=== PATIENT | female | born 1990 | race Caucasian/White ===

== ENCOUNTER 2024-08-23 10:52 | Outpatient (AMB) | payer OTHER, SELFPAY ==
--- NOTE | 2024-08-23 10:57 | MHC.PC.OV ---
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 Health Care Consultant Required: No Accompanied by: Child Allergies No Known Allergies Allergy (Verified 08/23/24 11:09) Medication List - Last Reconciled 08/23/24 by Latanya Guerra MD cetirizine mg PO epinephrine (EpiPen 2-Margarito) 0.3 mg IM Q10M PRN Tobacco use date assessed: 08/23/24 Dental Screening Dental Screen Date: 08/23/24 Did you have a dental visit in the last 12 months?: No Did you have a dental problem in the last 6 months where you did not have access to dental care?: No Was dental information given to patient?: Patient has dentist HPI HPI Comments History of Present Illness Details The patient is a 33-year-old female presenting with knee pain and other musculoskeletal complaints. She reports bilateral knee pain described as a burning sensation, primarily occurring at the end of the day. 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 She notes that it often leads to tears and disrupts her sleep, but she rarely seeks medical attention unless experiencing severe discomfort. The pain has persisted for an unspecified duration, and currently, she reports no use of pain medications for relief. Additionally, the patient expresses concern about generalized muscular pain and occasional swelling in the shoulder, which she attributes to lifting and using a massaging device. She denies any swelling in her knee. The patient has also reported a feeling of tiredness and low energy levels, but she generally sleeps well. She experiences episodes of difficulty relaxing and restlessness, which she associates with mild anxiety. There has been no alcohol or tobacco use reported. [facility] Surgical History History of cholecystectomy History of History of carpal tunnel surgery History of appendectomy Family History Mother Diabetes Dementia Arthritis Anemia Father No problems noted. Social History Housing: House Alcohol intake: never Patient Tobacco Use Status: Never used Tobacco e-Cigarette/Vaping Use: Never Used Second Hand Smoke Exposure: No service: No Current occupational status: employed Current occupational exposures/hazards: No Cognitive needs: No Hearing needs: No Vision needs: No Questionnaire PHQ-9 Over the last 2 weeks, how often have you been bothered by any of the following problems? 1. Little interest or pleasure in doing things: not at all 2. Feeling down, depressed, or hopeless: not at all 3. Trouble falling or staying asleep, or sleeping too much: not at all 4. Feeling tired or having little energy: several days 5. Poor appetite or overeating: not at all 6. Feeling bad about yourself - or that you are a failure or have let yourself or your family down: not at all 7. Trouble concentrating on things, such as reading the newspaper or watching television: not at all 8. Moving or speaking so slowly that other people could have noticed. Or the opposite - being so fidgety or restless that you have been moving around a lot more than usual: not at all 9. Thoughts that you would be better off or of hurting yourself in some way: not at all Total score: 1 Depression Screening Interpretation: Positive Depression Screening Follow-up: Existing condition and Follow-up Visit Requested Depression Screening Done: Yes 80868 - PHQ-9 Billing: Yes Source: Developed by Drs. Mario Eugene, Enid Isabel, Evens Diaz and colleagues, with an educational anish from [employer]. Thrive Questionnaire Date Thrive assessed: 08/23/24 I am a: Patient What is your living situation today?: I have a steady place to live Within the past 12 months, did the food you bought not last and you didn't have the money to get more?: Never true Within the past 12 months, did you worry whether your food would run out before you got money to buy more?: Never true Do you have trouble paying for medicines?: No Do you have trouble getting transportation to medical appointments?: No Do you have trouble paying your heating and electricity bill?: No Do you have trouble taking care of your child, family member or friend?: No Do you have trouble with day-to-day activities such as bathing, preparing meals, shopping, managing finances, etc.?: No Are you currently unemployed and looking for a job?: No Are you interested in more education?: No Please select the resources that you would like help with: None Currently or been in a relationship where the following occur: No concerns reported THRIVE Score: 0 AUDIT C Alcohol Use Questionnaire (AUDIT-C) 1. How often do you have a drink containing alcohol?: Never Total Score: 0 Score Reviewed/Action Taken: No ANDRZEJ-7 AMB Questionnaire ANDRZEJ-7 Date ANDRZEJ - 7 assessed: 08/23/24 Feeling nervous, anxious, or on edge: 0 = Not at all Not being able to stop or control worryin = Not at all Worrying too much about different things: 0 = Not at all Trouble relaxin = Several days Being so restless that it is hard to sit still: 1 = Several days Becoming easily annoyed or irritable: 0 = Not at all Feeling afraid as if something awful might happen: 0 = Not at all Total ANDRZEJ-7 score (0-4 normal; 5-9 mild; 10-14 moderate; 15-21 severe): 2 Source: Developed by Drs. Mario Eugene, Enid Isabel, Evens Diaz and colleagues, with an educational anish from [employer]. ANDRZEJ-7 Assessment Billing ANDRZEJ-7 Assessment Tool: ANDRZEJ-7 Assessment 58150 Review of Systems Const All systems reviewed & are unremarkable except as noted in HPI and below Card Denies chest pain at rest, Denies chest pain with activity, Denies edema, Denies irregular heart rhythm, Denies claudication, Denies dyspnea, Denies dyspnea on exertion, Denies orthopnea, Denies paroxysmal nocturnal dyspnea and Denies slow heart rate Resp Denies cough, Denies dyspnea and Denies dyspnea on exertion GI Denies abdominal pain, Denies change in bowel habits, Denies excessive flatus, Denies nausea and Denies vomiting Musc Reports arthralgias Physical exam (Primary Care) Vital Signs: Last Vital Signs BP 118/70 08/23/24 11:00 BMI result Body Mass Index 41.5 BMI Assessment/Plan discussion: High BMI High, discussed plan: lifestyle, weight reduction, dietary and physical activity Tobacco/Smoking Status: Tobacco use Status Tobacco use date assessed 08/23/24 08/23/24 11:07 Patient Tobacco Use Status Never used Tobacco 08/23/24 11:07 e-Cigarette/Vaping Use Never Used 08/23/24 11:07 PHQ-9: PHQ-9 Score PHQ-9: Total score 1 08/23/24 11:00 Depression Screening Interpretation: Positive Depression Screening Follow-up: Existing condition and Follow-up Visit Requested Thrive Assessment: Date of Thrive Assessment Date Thrive assessed 08/23/24 08/23/24 11:00 Currently or been in a relationship where the following occur: No concerns reported Resp Effort & Inspection: normal respiratory effort Auscultation: clear to auscultation bilaterally Cardio Jugular venous distension: no JVD Rate: regular rate Rhythm: regular rhythm Heart sounds: S1 normal heart sound present and S2 normal heart sound present Extrem General: Yes full ROM Office Procedures Flu Questionnaire Does the patient have a severe egg allergy?: No Immunizations Fluarix Triv [id number] (PF) 45 mcg (15 mcg x 3)/0.5 mL IM syringe Performing Provider: Latanya Guerra MD Per[facility] [place] [facility] Documented (not given) by: ANG Painting on 08/23/24 11:07 Reason Not Given: Patient Refused Coding Level of Care Code New Pt Level 4 (38027) Complex EM visit Add On G2211 Diagnoses Morbid obesity with BMI of 40.0-44.9, adult E66.01; Z68.41 ANDRZEJ (generalized anxiety disorder) F41.1 Seasonal allergic rhinitis due to pollen J30.1 Allergic rhinitis trigger: pollen Allergic rhinitis seasonality: seasonal Chronic pain of right knee M25.561; G89.29 Chronicity: chronic Chronic pain of left knee M25.562; G89.29 Chronicity: chronic Neck pain M54.2 Lumbar pain M54.50 Chronic left shoulder pain M25.512; G89.29 Chronicity: chronic Chronic right shoulder pain M25.511; G89.29 Chronicity: chronic Thoracic spine pain M54.6 Additional Codes PHQ-9 - 57912 - PHQ-9 Billing: Yes ([id number]) ANDRZEJ-7 Assessment Billing - ANDRZEJ-7 Assessment Tool: ANDRZEJ-7 Assessment 54160 ([id number]) Time Spent (min) 25 Assessment & Plan Assessment & Plan (1) Morbid obesity with BMI of 40.0-44.9, adult: Code(s): E66.01 - Morbid (severe) obesity due to excess calories; Z68.41 - Body mass index [BMI] 40.0-44.9, adult Category: Medical (2) ANDRZEJ (generalized anxiety disorder): Code(s): F41.1 - Generalized anxiety disorder Category: Medical (3) Allergic rhinitis: Code(s): J30.9 - Allergic rhinitis, unspecified Category: Medical Qualifiers: Allergic rhinitis trigger: pollen Allergic rhinitis seasonality: seasonal Qualified Code(s): J30.1 - Allergic rhinitis due to pollen (4) Right knee pain: Code(s): M25.561 - Pain in right knee Category: Medical Qualifiers: Chronicity: chronic Qualified Code(s): M25.561 - Pain in right knee; G89.29 - Other chronic pain (5) Left knee pain: Code(s): M25.562 - Pain in left knee Category: Medical Qualifiers: Chronicity: chronic Qualified Code(s): M25.562 - Pain in left knee; G89.29 - Other chronic pain (6) Neck pain: Code(s): M54.2 - Cervicalgia Category: Medical (7) Lumbar pain: Code(s): M54.50 - Low back pain, unspecified Category: Medical (8) Left shoulder pain: Code(s): M25.512 - Pain in left shoulder Category: Medical Qualifiers: Chronicity: chronic Qualified Code(s): M25.512 - Pain in left shoulder; G89.29 - Other chronic pain (9) Right shoulder pain: Code(s): M25.511 - Pain in right shoulder Category: Medical Qualifiers: Chronicity: chronic Qualified Code(s): M25.511 - Pain in right shoulder; G89.29 - Other chronic pain (10) Thoracic spine pain: Code(s): M54.6 - Pain in thoracic spine Category: Medical Plan - Prescribe antihistamines for allergic rhinitis and arrange for allergy testing due to undiagnosed reactions. - Initiate a plan for managing knee pain, possibly including non-steroidal anti-inflammatory drugs NSAIDs) and recommending weight loss to reduce joint stress. - Schedule imaging studies for the knees, shoulders, lumbar spine, and thoracic spine to assess any musculoskeletal anomalies. - Consider referral to rheumatology for evaluation of musculoskeletal pain and possible rheumatic conditions. - Address mild anxiety through stress-relief strategies and encourage follow-up consultations if symptoms persist. Patient was informed and verbally consented to the use of an ambient scribe for clinic note documentation during this visit. We discussed the management of her knee pain and other musculoskeletal complaints. I suggested beginning with NSAIDs for pain relief and emphasized the importance of addressing weight management to alleviate stress on her joints. Imaging studies were proposed to further investigate the musculoskeletal pain, and we agreed on a rheumatology referral if necessary. Regarding her mild anxiety, we talked about lifestyle modifications and stress management techniques. I detailed the procedure for the proposed consultations and ensured she understood the importance of reporting any significant changes or worsening of symptoms. Orders: Orders Influenza [id number] Immunization Today Z23 - Encounter for immunization XR cervical spine 2V Today M54.2 - Cervicalgia XR thoracic spine 2V Today M54.6 - Pain in thoracic spine XR lumbar spine 2-3V Today M54.50 - Low back pain, unspecified Complete Blood Count Auto Diff Today M25.50 - Pain in unspecified joint Thyroid Stimulating Hormone Today E66.01 - Morbid (severe) obesity due to excess calories, Z68.41 - Body mass index [BMI] 40.0-44.9, adult Cyclic Citrullinated Peptide Today M25.50 - Pain in unspecified joint XR knee LT 2V Today M25.562 - Pain in left knee XR knee RT 2V Today M25.561 - Pain in right knee XR shoulder LT min 2V Today M25.512 - Pain in left shoulder XR shoulder RT min 2V Today M25.511 - Pain in right shoulder Comprehensive [place]. Panel Fast Today M25.50 - Pain in unspecified joint Lipid Panel Today E66.01 - Morbid (severe) obesity due to excess calories, Z68.41 - Body mass index [BMI] 40.0-44.9, adult Rheumatoid Factor Today M25.50 - Pain in unspecified joint Referrals Rheumatology Referral M25.50 - Pain in unspecified joint Orthopedics Referral M25.561 - Pain in right knee, M25.562 - Pain in left knee Patient Instructions: - Take antihistamines as prescribed for allergy symptoms. - Follow the recommended plan for knee pain, including any prescribed medications. - Reduce weight through diet and beneficial physical activity as discussed. - Schedule imaging studies and follow up with the results. - Consider stress management techniques and report any exacerbation of anxiety symptoms. - Return in four months for physical examination and further evaluation.
[2024-08-23 11:00] VITALS: BP 118/70; BMI 41.5
== END 2024-08-23 11:22 | disposition home or self-care (01) ==
PROVIDERS: PCP Internal Medicine; Visit Provider Internal Medicine
DX: E66.01 Morbid (severe) obesity due to excess calories (principal); Z68.41 Body mass index [BMI] 40.0-44.9, adult; F41.1 Generalized anxiety disorder; J30.1 Allergic rhinitis due to pollen; M25.561 Pain in right knee; G89.29 Other chronic pain; M25.562 Pain in left knee; M54.2 Cervicalgia; M54.50 Low back pain, unspecified; M25.512 Pain in left shoulder; M25.511 Pain in right shoulder; M54.6 Pain in thoracic spine; Z23 Encounter for immunization

== ENCOUNTER → 2024-08-23 10:52 | Outpatient (BNVA) | payer OTHER, SELFPAY | PROVIDERS: PCP Internal Medicine; Visit Provider Internal Medicine | DX: E66.01 Morbid (severe) obesity due to excess calories (principal); Z68.41 Body mass index [BMI] 40.0-44.9, adult; F41.1 Generalized anxiety disorder; J30.1 Allergic rhinitis due to pollen; G89.29 Other chronic pain; M25.561 Pain in right knee; M25.562 Pain in left knee; M54.2 Cervicalgia; M54.50 Low back pain, unspecified; M25.512 Pain in left shoulder; M25.511 Pain in right shoulder; M54.6 Pain in thoracic spine | CPT/HCPCS: 90471; 96127 ==

== ENCOUNTER 2024-09-04 07:34 | Outpatient (REF) | payer OTHER, SELFPAY ==
--- NOTE | ~2024-09-04 | XR_ITS ---
CLINICAL HISTORY: M25.561 - Pain in right knee 2 view right knee Comparison: None Findings: No dislocation There is preserved joint spaces. Small medial and lateral compartmental osteophytes. Small patellofemoral osteophytes. There is a fragmentation of the superior facet patellar osteophyte at the quadriceps tendon insertion. No joint effusion. No radiopaque foreign body. IMPRESSION: Osteoarthrosis Fragmentation superior facet patella osteophyte which may be degenerative and/or new or old fracture through the osteophyte correlate with point tenderness and clinical history This document has been electronically signed by: Mario Otoole MD on 09/07/2024 08:27:45
--- NOTE | ~2024-09-04 | XR_ITS ---
CLINICAL HISTORY: M54.50 - Low back pain, unspecified 3 views lumbar spine Comparison: None Findings: Normal alignment. No acute fractures or dislocation. There are small multilevel lumbar spine osteophytes. Mild degenerative changes of the SI joints. There are benign bony exostosis within the pelvis IMPRESSION: No acute fractures Multilevel spondylosis most significant at L5-S1 Mild degenerative changes SI joints This document has been electronically signed by: Mario Otoole MD on 09/07/2024 08:39:40
--- NOTE | ~2024-09-04 | XR_ITS ---
CLINICAL HISTORY: M25.512 - Pain in left shoulder 3 view left shoulder Comparison: None Findings: No acute fractures or dislocations. Mild degenerative changes of the AC joint. No dislocation or subluxation No significant loss of joint space or osteophytes. No erosions. No radiopaque foreign body. IMPRESSION: 1. No acute findings This document has been electronically signed by: Mario Otoole MD on 09/07/2024 06:49:32
--- NOTE | ~2024-09-04 | XR_ITS ---
CLINICAL HISTORY: M25.562 - Pain in left knee 2 view left knee Comparison: None Findings: Bones intact. No dislocations. Preserved joint spaces. There are small posterior patellar osteophytes at the patellofemoral joint. There is also an osteophyte at the insertion of thequadriceps tendon, superior facet of the patella No joint effusion. No radiopaque foreign body. IMPRESSION: No acute fractures Degenerative changes as above This document has been electronically signed by: Mario Otoole MD on 09/07/2024 06:53:32
--- NOTE | ~2024-09-04 | XR_ITS ---
CLINICAL HISTORY: M54.6 - Pain in thoracic spine 2 views thoracic spine Comparison: None Findings: Normal bone mineralization No acute fractures or dislocation. There are small multilevel thoracic osteophytes. There is mild S shaped thoracolumbar spine scoliosis. Limited evaluation of the upper thoracic spine due to bone and soft tissue overlap. IMPRESSION: Multilevel spondylosis, no acute fractures Mild S shaped thoracolumbar spine scoliosis This document has been electronically signed by: Mario Otoole MD on 09/07/2024 08:39:10
--- NOTE | ~2024-09-04 | XR_ITS ---
CLINICAL HISTORY: M25.511 - Pain in right shoulder 3 view right shoulder Comparison: None Findings: Bones intact. No dislocations. There are mild degenerative changes of the AC joint. There are mild osteophytes. There is tiny subchondral geodes. Minimal humeral and glenoid osteophytes No significant loss of joint space or osteophytes. No erosions. No radiopaque foreign body. IMPRESSION: No acute fractures mild degenerative changes This document has been electronically signed by: Mario Otoole MD on 09/07/2024 07:01:12
--- NOTE | ~2024-09-04 | XR_ITS ---
CLINICAL HISTORY: M54.2 - Cervicalgia 4 views cervical spine Comparison: None Findings: No acute fractures. 2 mm anterior listhesis C4 on C5. Minimal cervical spine osteophytes No significant degenerative change. Prevertebral soft tissues within normal limits. There are likely multiple dental caries. The teeth are incompletely included on the field of view IMPRESSION: No acute fractures, mild spondylosis Likely multiple dental caries, correlate with dental consult and dental radiographs This document has been electronically signed by: Mario Otoole MD on 09/07/2024 06:49:07
[2024-09-04 08:19] LABS: MANUAL DIFF FLAG NO
[2024-09-04 08:24] LABS: Basophils Percent Auto 0.7 % (0-2); Eosinophils Absolute Auto 0.1 X10*3/uL (0.0-0.4); Eosinophils Percent Auto 2.8 % (0-4); Hemoglobin 12.4 g/dl (12.0-16.0); Imm Gran Abs Auto 0.01 X10*3/uL (0.00-0.03); Imm Gran Pct Auto 0.2 % (0.0-0.4); Lymphocytes Absolute Auto 1.5 X10*3/uL (1.2-4.9); Lymphocytes Percent Auto 34.6 % (20-40); Mean Corpuscular HGB Conc 32.6 g/dl (31.0-35.0); Mean Corpuscular Hemoglobin 29.7 pg (27.0-33.0); Mean Corpuscular Volume 90.9 fL (80.0-98.0); Mean Platelet Volume 9.6 fL (9.4-12.3); Monocytes Absolute Auto 0.3 X10*3/uL (0.1-1.2); Monocytes Percent Auto 6.5 % (2-11); Neutrophils Absolute Auto 2.4 x10*3/uL (2.0-8.3); Neutrophils Percent Auto 55.2 % (45-73); Platelet Count 182 X10*3/uL (160-400); Red Blood Count 4.18 X10*6/uL (4.20-5.50); White Blood Count 4.3 X10*3/uL (4.8-10.8)
[2024-09-04 09:05] LABS: Alanine Aminotransferase 19 U/L (0-31); Albumin Level 4.1 g/dL (3.5-5.0); Alkaline Phosphatase 46 U/L (39-117); Anion Gap 9 (12-20); Aspartate Amino Transferase 16 U/L (5-31); Bilirubin Total 0.7 mg/dL (0.0-1.0); Blood Urea Nitrogen 13 mg/dL (9-16); Calcium 8.7 mg/dL (8.4-10.2); Carbon Dioxide 27 mmol/L (22-29); Chloride 110 mmol/L (96-108); Cholesterol 129 mg/dL (<200); Estimated Glomerular Filt Rate > 60; Glucose Fasting 100 mg/dL (60-99); HDL Cholesterol 38 mg/dL (>40); LDL Cholesterol Calculated 81 mg/dL (<100); Potassium 3.9 mmol/L (3.3-5.1); Sodium 142 mmol/L (135-145); Total Protein 7.5 g/dL (6.5-8.0); Triglycerides 50 mg/dL (<150)
[2024-09-04 09:22] LABS: Rheumatoid Factor < 13.0 IU/mL (<15.0); Thyroid Stimulating Hormone 0.71 uIU/mL (0.32-4.0)
[2024-09-07 13:48] LABS: Cyclic Citrullinated Peptide <16 UNITS
== END 2024-09-04 07:35 | disposition home or self-care (01) ==
LOC: HO.LAB 07:34
PROVIDERS: PCP Internal Medicine; Visit Provider Internal Medicine
DX: E66.01 Morbid (severe) obesity due to excess calories (principal); Z68.41 Body mass index [BMI] 40.0-44.9, adult; M25.50 Pain in unspecified joint; M54.2 Cervicalgia; M25.562 Pain in left knee; M25.561 Pain in right knee; M25.512 Pain in left shoulder; M25.511 Pain in right shoulder; M54.6 Pain in thoracic spine; M54.50 Low back pain, unspecified
CPT/HCPCS: 36415; 72040; 72070; 72100; 73030; 73560; 80053; 80061; 84443; 85025; 86200; 86431

== ENCOUNTER → 2024-09-04 08:20 | Outpatient (BNV) | payer OTHER, SELFPAY | PROVIDERS: PCP Internal Medicine; Visit Provider Radiology Diagnostic Radiology | DX: M54.50 Low back pain, unspecified (principal); M54.2 Cervicalgia; M54.6 Pain in thoracic spine; M25.512 Pain in left shoulder; M25.511 Pain in right shoulder; M25.561 Pain in right knee; M25.562 Pain in left knee | CPT/HCPCS: 72040; 72070; 72100; 73030; 73560 ==

== ENCOUNTER 2024-09-22 13:22 | Outpatient (AMB) | payer OTHER, SELFPAY ==
--- NOTE | 2024-09-22 14:15 | A.OFFVIS_ITS ---
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 Patient was seen by her PCP and was referred to orthopedics. Patient reports constant pain that has been present for a while that is located at the anterior aspect of knees. She described her pain as a burning sensation. Her right knee causes the most discomfort. Denies injury. Finds relief no relief with Tylenol or Motrin. 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 She states she has been having pain for several years and states that she is so used to it she endorsed that throughout the day but notices most of her pain at night when she is trying to sleep. She describes the pain as burning and located along the anterior portion of her knee. [facility] Surgical History History of cholecystectomy History of History of carpal tunnel surgery History of appendectomy Family History Mother Diabetes Dementia Arthritis Anemia Father No problems noted. 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 No joint effusion present. She has full range of motion in both knees with severe crepitus laterally. She has no ligamentous laxity. Calf is supple nontender neurovascularly intact. Results Reviewed Results Reviewed: Knee x-rays from outside source are negative for any acute or chronic abnormalities. She does have calcifications along the quad insertion through the patella. No notable defects. Assessment & Plan Assessment & Plan (1) Chronic patellofemoral pain of both knees: Code(s): M25.561 - Pain in right knee; M25.562 - Pain in left knee; G89.29 - Other chronic pain Category: Medical Plan: We discussed options today which include physical therapy and a knee brace. We also discussed injections which she is not interested in at this time. I sent a prescription for ibuprofen 800 mg 3 times a day to the pharmacy to be taken for 2 weeks with occasional flare-ups. I did place an order for physical therapy and she was fit for bilateral knee braces to help with stability and support while ambulating. If symptoms persist or worsen she will contact our office otherwise follow up as needed. Medications: New ibuprofen 800 mg PO Q8H PRN 90 tabs 3RF pain 30 days S52.209D - Unspecified fracture of shaft of unspecified ulna, subsequent encounter for closed fracture with routine healing Coding Level of Care Code New Pt Level 3 (80665) Complex EM visit Add On G2211 Diagnoses Chronic patellofemoral pain of both knees M25.561; M25.562; G89.29
[2024-09-22 14:22] VITALS: BMI 41.5
== END 2024-09-22 15:07 | disposition home or self-care (01) ==
PROVIDERS: PCP Internal Medicine; Visit Provider Physician Assistant
DX: M25.561 Pain in right knee (principal); M25.562 Pain in left knee; G89.29 Other chronic pain
CPT/HCPCS: 99203

== ENCOUNTER → 2024-09-22 13:22 | Outpatient (BNVA) | payer OTHER, SELFPAY | PROVIDERS: PCP Internal Medicine; Visit Provider Physician Assistant ==